=== PATIENT | male | born 1945 | race Caucasian/White ===

== ENCOUNTER 2019-07-27 16:53 | Emergency (ER) | payer MEDICARE ==
[~2019-07-27] VITALS: Ht 185.4 cm; Wt 111.0 kg
[~2019-07-27 16:53] MED LIST: LIDOcaine 1% w/EPI 1:100,000 30ml vial (MDV) ONE
[2019-07-27 17:04] VITALS: BP 137/81
[2019-07-27] MEDS ORDERED: baclofen 10mg tablet PO STA (17:32)
[2019-07-27] MEDS ORDERED: LIDOcaine 5% patch TP STA (18:35)
[2019-07-27] MEDS ORDERED: BACL10TA PO (18:42)
[2019-07-27] MEDS ORDERED: LIDO700A32 TOP (18:42)
== END 2019-07-27 19:18 | disposition home or self-care (01) ==
LOC: ER 16:54
DX: S16.1XXA Strain of muscle, fascia and tendon at neck level, initial encounter (principal); I25.10 Atherosclerotic heart disease of native coronary artery without angina pectoris; I25.2 Old myocardial infarction; G89.29 Other chronic pain; Z86.73 Personal history of transient ischemic attack (TIA), and cerebral infarction without residual deficits; Z95.5 Presence of coronary angioplasty implant and graft; X50.1XXA Overexertion from prolonged static or awkward postures, initial encounter; Y93.89 Activity, other specified; Y92.89 Other specified places as the place of occurrence of the external cause; Y99.9 Unspecified external cause status
CPT/HCPCS: 20552; 99284